=== PATIENT | male | born 1945 | race Caucasian/White ===

== ENCOUNTER 2021-10-04 13:04 | Day surgery (SDC) | payer MEDICARE, OTHER ==
[2021-10-04] MEDS ORDERED: Depo-Medrol 40 MG/ML IM ONE (13:05)
[2021-10-04] MEDS ORDERED: Sodium Chloride 0.9% 10 ML FLUSH Syringe IJ ONE (13:05)
[2021-10-04 14:40] LABS: INR 1.06 (0.8-3.0); PROTIME 12.5 SECONDS (9.4-12.5)
[2021-10-04] MEDS ORDERED: Lactated Ringers 1,000 ML IV ONE (15:44)
[2021-10-04] MEDS ORDERED: DIPRIVAN 200 MG/20 ML IV ONE (16:12)
--- NOTE | 2021-10-04 22:17 | XRAY ---
Indication: Left L4-S1 transforaminal NICOLASA. Intraoperative fluoroscopy provided for 32 seconds. 4 digital spot image submitted for interpretation demonstrates posterior needle tips projecting over the expected left L4 and L5 nerve roots. Small amount of contrast injected for needle tip placement. Correlate with intraoperative findings/report.
--- NOTE | 2021-10-05 08:52 | XRAY ---
32 seconds of fluoroscopy was used in surgery for a left L4-S1 transforaminal NICOLASA.
== END 2021-10-04 16:40 | disposition home or self-care (01) ==
LOC: SDC-PAIN 13:04
PROVIDERS: ATTEND Psychiatry & Neurology Pain Medicine
DX: M54.16 Radiculopathy, lumbar region (principal); I10 Essential (primary) hypertension; Z79.899 Other long term (current) drug therapy; Z95.2 Presence of prosthetic heart valve
CPT/HCPCS: 36415; 64483; 64484; 72100; 77003; 85610; J1030; J2704; Q9966